=== PATIENT | female | born 1955 | race Caucasian/White ===

== ENCOUNTER 2017-05-30 05:19 | Day surgery (SDC) | payer OTHER ==
[~2017-05-30] VITALS: Ht 167.6 cm; Wt 62.6 kg
--- NOTE | ~2017-05-30 | O ---
[facility] [place] [address] OPERATIVE REPORT Name: ITZEL RAUSCH Room #: 150-6 [facility] M.R.#: [id number] Admission: 05/30/17 Attend Phys: Narendra Trinidad MD Discharge: Date of : 53 Report #: [id number] THIS REPORT FOR: //name// CC: FAM unknown Narendra Trinidad DATE OF SERVICE: 05/30/2017 PREOPERATIVE DIAGNOSIS: Frontal and ethmoid sinusitis with polyposis. POSTOPERATIVE DIAGNOSIS: Frontal and ethmoid sinusitis with polyposis. PROCEDURE: 1. Image guided endoscopic revision ethmoidectomies bilaterally. 2. Image guided frontal sinus balloon dilation. SURGEON: Narendra Trinidad M.D. ANESTHESIA: General LMA. INDICATIONS: See H and P. FINDINGS: Substantial amount of polypoid mucosa and polyps were noted in the right and left ethmoid defects. The patient previously had a total sphenoethmoidectomies; however, polyposis had recurred essentially filling both ethmoid defects in the frontal sinus recess. There is a small amount of inspissated thick mucus in the floor of the left maxillary sinus. Both sphenoids were widely patent. TECHNIQUE: After obtaining consent, she was brought to the operating suite, appropriate timeout was performed. General oral LMA anesthesia was obtained. The bed was turned 90 degrees. The nose was prepped and draped in usual sterile fashion. The [employer] image guidance was registered and accuracy was confirmed within 1 mm. Throughout the case, image-guided section for both the straight and frontal sinus suction as well as image guidance, a balloon dilation was used. This is very important given multiple revisions this woman has had. The nose was prepped with cottonoids with Afrin to reduce mucosal shrinkage in the inferior middle turbinates. A 1.5 mL of 1% Xylocaine 1:100,000 epinephrine was injected on each side directly under endoscopic visualization of the nasal polyps. After waiting several minutes using the 12 degree microdebrider blade under endoscopic guidance, I removed the polyps from the left ethmoid cavities in an inferior to superior and a posterior to anterior direction. A large bulk of this was noted around the frontal sinus recess. There was only a middle turbinate remnant left on the left side preoperatively and the boundaries thus were respected as well. It should be noted the sphenoidotomy was widely patent [address] [address] OPERATIVE REPORT Name: ITZEL RAUSCH [facility] Room #: 150-6 [facility] M.R.#: [id number] Admission: 05/30/17 Attend Phys: Narendra Trinidad MD Discharge: Date of : 53 Report #: [id number] on the left side as well as the nasal antral window. After removal of adequate amount of polyps, a cottonoid was placed on the side. I turned over the right side where again under endoscopic guidance, I removed the large amount of polyps, mostly in the anterior portion of the ethmoid cavity on this side. It should be noted the middle turbinate was mostly still intact on this side and was left intact as well. Using an image-guided frontal sinus seeker, I introduced the image guidance frontal sinus seeker somewhat easily into the right frontal sinus. This was then balloon dilated under image guidance to adequate size twice. I then took the frontal sinus suction up into this area, but did not remove any mucus at all. A similar technique was performed on the left frontal sinus using the frontal sinus probe first. This side was a little bit tighter in nature and did have more polypoid mucosa present and I did take a little bit more from the frontal sinus orifice with a microdebrider, but again balloon was placed twice and dilated with good results. Both frontal sinus tracts were easily probed patent at the completion of the case. I did attempt with a 70-degree scope to remove the inspissated mucus in the floor of the left maxillary sinuses, unable to reach it despite the use of multiple giraffe forceps. However, the remainder of the tissue appeared to be healthy. Xerogel was then placed in the ethmoid defects bilaterally and against the frontal sinus recess and inflated with saline. The nasopharynx was suctioned free of secretions. She was allowed to awaken from anesthesia, went to recovery room in stable condition. ESTIMATED BLOOD LOSS: About 25 mL. By: 1125 1333 Narendra Trinidad MD /juliana
--- NOTE | ~2017-05-30 | S ---
[facility] [place] [address] SURGICAL PATH RPT PROCEDURE Name: MEAGAN RAUSCH KORI Room #: DEP [facility] M.R.#: [id number] Admission: 05/30/17 Date of : 53 Discharge: 05/30/17 Report #: [id number] Path Case #: [id number] PATHOLOGY REPORT COLLECTION DATE: 05/30/2017 RECEIVED DATE: 05/30/2017 SUBMITTING PHYS: Dr. Narendra Trinidad OTHER PHYS: SPECIMEN(S) RECEIVED: A.Sinus contents * * * * * * * * * * * * FINAL DIAGNOSIS: Sinus contents: - Fragments of sinonasal mucosa with mild chronic inflammation. - Mild increase in eosinophils identified within the infiltrate, fungal special stain pending. - Fragments of reactive bone. (IUV:pit; 06/02/2017) PATHOLOGIST: Jeana Abdi M.D. REPORT ELECTRONICALLY SIGNED BY: Jeana Abdi M.D. DATE/TIME: 06/02/2017 17:02 * * * * * * * * * * * * GROSS PATHOLOGY: Received in formalin labeled "Meagan Rausch, sinus contents," is a 3.0 x 1.5 x 0.3 cm aggregate of multiple fragments of hawthorne membranous tissue admixed with small fragments of possible bone. [employer] tissue is submitted in cassette A1, following decalcification. (TSD; 05/31/2017) CLINICAL HISTORY: Chronic sinusitis INITIAL CPT CODE(S): A; 67258, 25381, 62107 Professional services performed by [facility] at [facility] [address] [place] [address] Technical services performed by [facility] at [address] [place] [id number]. [facility] [address] [place] [address] SURGICAL PATH RPT PROCEDURE Name: MEAGAN RAUSCH [facility] Room #: DEP [facility] Vaughn#: [id number] Admission: 05/30/17 Date of : 53 Discharge: 05/30/17 Report #: [id number] Path Case #: [id number] [address] PHONE: [phone] DIRECTOR: Thiago Cade M.D. * * * END OF REPORT * * *
--- NOTE | ~2017-05-30 | H ---
[facility] [place] [address] HISTORY AND PHYSICAL Name: ITZEL RAUSCH Room #: 150-6 [facility] M.R.#: [id number] Admission: 05/30/17 Attend Phys: Narendra Trinidad MD Discharge: Date of : 53 Report #: [id number] THIS REPORT FOR: //name// CC: FAM unknown Narendra Trinidad DATE OF SERVICE: 05/30/2017 CHIEF COMPLAINT: Recurrent rhinosinusitis with chronic sinusitis. HISTORY OF PRESENT ILLNESS: The patient is a 62-year-old female who has a long history of chronic rhinosinusitis. She had a previous sinus surgery done in 06/2016 at which time she was noted to have rhinosinusitis. She was prescribed compounding sinus rinses at that time, but never used it. She returned in March having continued and increasing sinonasal symptoms despite the use of nasal saline spray, Mucinex and nasal steroid sprays. We updated a CT scan more recently, which did not show any symptom progression, but she still did demonstrate significant frontal disease and accumulation within the maxillary sinuses. I gave her the options at that time of continuing on a medical course of therapy with medication rinses or use of surgical intervention to clean out the maxillary sinuses further, remove the remaining agger nasi air cells and open the frontal sinus areas. Surgical risks and benefits were discussed in great detail with her and she agrees to proceed forward at this time. She is aware that she may need to continue to focus on further medical therapy or she may have lack of complete resolution of symptoms despite surgical intervention. Surgical risks were also reviewed with her in the office that was discussed in detail. ALLERGIES TO MEDICATION: AMOXICILLIN, WHICH CAUSES HIVES, SULFA, WHICH CAUSES GASTROINTESTINAL UPSET. MEDICATIONS ON ADMISSION: Include omega 3 done daily and Osteo Bi-Flex tablets done daily. PAST MEDICAL AND SURGICAL HISTORY: Notable for previous hysterectomy, knee surgery and the above-mentioned sinus surgery, also has a history of osteoarthritis and mild allergies. REVIEW OF SYSTEMS: Negative at this time for any GI, , cardiovascular, pulmonary or hematopoietic issues. PHYSICAL EXAMINATION: GENERAL: A female who appears younger than her stated age. VITAL SIGNS: Height of 5 feet 5 inches, weight 140 pounds, blood pressure 116/62. HEENT: As noted above. Nasal examination demonstrates left and right middle [facility] [address] [place] [address] HISTORY AND PHYSICAL Name: ITZEL RAUSCH [facility] Room #: 150-6 [facility] M.R.#: [id number] Admission: 05/30/17 Attend Phys: Narendra Trinidad MD Discharge: Date of : 53 Report #: [id number] meatal polyps present without any crusting present. Nasal mucosa visualizes these polyps present. The ethmoid defects are widely patent and without any crusting. Oral cavity and oropharynx is normal. CHEST: Normal. CARDIOVASCULAR: Regular rhythm and regular rate. ASSESSMENT: History of chronic sinusitis. PLAN: Will be for the above-mentioned surgery. <ELECTRONICALLY SIGNED> By: Narendra Trinidad MD 05/30/17 0732 [id number] Narendra Trinidad MD /nt
[~2017-05-30 05:19] MED LIST: CELEXA20 MG PO; ESTRADIOL 1 MG T1 M1 PO; IBUPROFEN 200200 M1 PO; MUCINEX600 MG PO; PROBIOTIC1 EAC1 PO
[2017-05-30 08:52] LABS: HEMATOCRIT 44.1 % (37.0-47.0); HEMOGLOBIN 14.4 gm/dL (12.0-15.0); MCH 30.4 pg (26.0-34.0); MCHC 32.6 g/dL (28.0-37.0); MCV 93.3 fL (80.0-100.0); RBC 4.72 mil/uL (4.20-5.00); RDW 13.3 % (10.5-14.5); WBC 6.6 thou/uL (4.0-11.0)
[2017-05-30 09:48] VITALS: BP 110/62
[2017-05-30 11:47] VITALS: BP 110/62
== END 2017-05-30 12:25 | disposition home or self-care (01) ==
LOC: TBA 05:19 → OR 05:19
PROVIDERS: Otolaryngology
DX: J32.1 Chronic frontal sinusitis (principal); J32.2 Chronic ethmoidal sinusitis; J33.8 Other polyp of sinus; K21.9 Gastro-esophageal reflux disease without esophagitis; M19.90 Unspecified osteoarthritis, unspecified site; Z88.0 Allergy status to penicillin; Z88.2 Allergy status to sulfonamides; Z90.710 Acquired absence of both cervix and uterus; Z98.890 Other specified postprocedural states; Z86.2 Personal history of diseases of the blood and blood-forming organs and certain disorders involving the immune mechanism
CPT/HCPCS: 50010; 50101; 50286; 50386; 50398; 50573; 50849; 52290; 52291; 53618; 62110; 62900; 64037; 70005